=== PATIENT | male | born 1935 | race Caucasian/White ===

== ENCOUNTER → 2016-12-01 | Outpatient (CLI) | payer MEDICARE ==
[~2016-12-01] MED LIST: CATHETER FLUSH 10 ML SYR IV PRN; IOHEXOL 350 MG/ML 100 ML (OMNIPAQUE 350) VIAL IV ONE; NS 100 ML (IVPB) BAG IV ONE
--- NOTE | 2016-12-01 10:14 | Diagnostic Imaging Report ---
PROCEDURE: CT chest with contrast only. TECHNIQUE: Multiple contiguous axial images were obtained through the chest after administration of intravenous contrast. INDICATION: Pneumonia. COMPARISON: 05/09/2014. FINDINGS: There is no airspace disease or alveolar consolidation. There is some partial atelectasis in the dependent upper lobes chaitanya-fissural bilaterally as well as in the posterior sulci of both lower lobes. There are dense atherosclerotic vascular calcifications of the thoracic aorta. The ascending aorta is ectatic at 4 cm. The pulmonary arterial branches centrally are widely patent. There is no thoracic effusion or pneumothorax. No hilar or mediastinal lymphadenopathy. No chest wall abnormality. The visualized upper abdomen shows a fatty liver with no acute finding. IMPRESSION: Nonaneurysmal aortic atherosclerosis although mild ectasia is noted. Negative for central PE. Zones of dependent atelectasis without pneumonia, lung mass, or adenopathy. No chest effusion. Dictated by: Dictated on workstation # [id number]
== END ==
LOC: RAD 08:28
PROVIDERS: ATTEND Nurse Practitioner
DX: I70.0 Atherosclerosis of aorta (principal); J18.9 Pneumonia, unspecified organism
CPT/HCPCS: 71260

== ENCOUNTER → 2016-12-06 | Outpatient (CLI) | payer OTHER, MEDICARE ==
--- NOTE | 2016-12-06 11:44 | Diagnostic Imaging Report ---
EXAMINATION: Modified barium swallow. Indication: Pneumonia Different consistencies of fluid and food was given mixed with barium and swallowing was visualized under fluoroscopy. FLUOROSCOPY TIME: One minute and 2 seconds FINDINGS: No aspiration seen.. IMPRESSION: No aspiration seen. Please refer to speech therapist's report for additional details . Dictated by: Dictated on workstation # [id number]
== END ==
LOC: RAD 10:11
PROVIDERS: ATTEND Nurse Practitioner
DX: R13.12 Dysphagia, oropharyngeal phase (principal)
CPT/HCPCS: 74230

== ENCOUNTER 2017-02-23 16:37 | Inpatient (IN) | payer MEDICARE ==
[~2017-02-23] VITALS: Ht 175.3 cm; Wt 99.7 kg
[2017-02-23] MEDS ORDERED: NS IV 1000 ML 1,000 ML IV STA (16:44)
[2017-02-23] MEDS ORDERED: ACETAMINOPHEN 500 MG TAB (TYLENOL) PO PRN (16:45)
[2017-02-23 16:59] LABS: BASOPHILS % (AUTO) 0 % (0-10); EOSINOPHILS # (AUTO) 0.3 10^3/uL (0.0-0.3); EOSINOPHILS % (AUTO) 2 % (0-10); LYMPHOCYTES # (AUTO) 1.9 X 10^3 (1.0-4.0); LYMPHOCYTES % (AUTO) 15 % (12-44); MEAN CORPUSCULAR HEMOGLOBIN 34 PG (25-34); MEAN CORPUSCULAR HGB CONC 33 G/DL (32-36); MEAN CORPUSCULAR VOLUME 102 FL (80-99); MEAN PLATELET VOLUME 9.9 FL (7.4-10.4); MONOCYTES # (AUTO) 1.6 X 10^3 (0.0-1.0); MONOCYTES % (AUTO) 12 % (0-12); NEUTROPHILS # (AUTO) 8.9 X 10^3 (1.8-7.8); NEUTROPHILS % (AUTO) 70 % (42-75); PLATELET COUNT 213 10^3/uL (130-400); RED BLOOD COUNT 4.69 10^6/uL (4.35-5.85); RED CELL DISTRIBUTION WIDTH 12.8 % (10.0-14.5); WHITE BLOOD COUNT 12.6 10^3/uL (4.3-11.0)
[2017-02-23] MEDS ORDERED: RT-ALBUTEROL/IPRATROPIUM 3 ML (DUONEB) VIAL ONE (17:05)
[2017-02-23 17:10] LABS: INR 0.9 (0.8-1.4); PROTHROMBIN TIME PATIENT 12.7 SEC (12.2-14.7)
[2017-02-23 17:20] LABS: ALBUMIN 3.7 GM/DL (3.2-4.5); BILIRUBIN,TOTAL 0.3 MG/DL (0.1-1.0); CALCIUM 8.6 MG/DL (8.5-10.1); CREATININE SERUM 1.3 MG/DL (0.60-1.30); POTASSIUM 3.8 MMOL/L (3.6-5.0); TOTAL PROTEIN 6.6 GM/DL (6.4-8.2)
--- NOTE | 2017-02-23 17:22 | Diagnostic Imaging Report ---
INDICATION: Shortness of breath and weakness. EXAMINATION: Single view of the chest was obtained. FINDINGS: There is cardiomegaly. There is some mild venous congestion. There is no pleural effusion or pneumothorax. The mediastinum is unremarkable. There is some minimal left basilar atelectasis and/or pneumonitis. IMPRESSION: Cardiomegaly and mild venous congestion with some minimal left basilar atelectasis and/or pneumonitis. Dictated by: Dictated on workstation # [id number]
--- NOTE | 2017-02-23 17:27 | ED Respiratory ---
General Chief Complaint: Respiratory Problems Stated Complaint: SOA,WEAKNESS History of Present Illness Time seen by provider: 16:45 Initial Comments 82-year-old male presents via EMS from jail in [place], [place]. Staff reports increased weakness and shortness of air. He has history of COPD. he is in no distress at this time, afebrile at time of admission. Timing/Duration: just prior to arrival Prior Episodes/Possible Cause: frequent episodes Allergies and Home Medications Allergies Coded Allergies: Penicillins (Verified Allergy, Unknown, 02/23/17) Constitutional: no symptoms reported, see HPI Respiratory: see HPI, cough, phlegm All Other Systems Reviewed Negative Unless Noted: Yes Past Eiiwlyw-Lssbcg-Fqltgl Hx Reviewed Nursing Assessment Reviewed/Agree w Nursing PMH: Yes Physical Exam Vital Signs Vital Sign - Last 12Hours Capillary Refill : General Appearance: WD/WN, no apparent distress Eyes: Bilateral Eye PERRL, Bilateral Eye EOMI, Bilateral Eye Other (purulent matter about eyelashes in discharge from eyes, no periorbital edema noted) HEENT: TMs normal, pharynx normal Neck: non-tender, full range of motion, supple, normal inspection, No lymphadenopathy (R), No lymphadenopathy (L) Respiratory: chest non-tender, no respiratory distress, rhonchi, wheezing Cardiovascular: normal peripheral pulses, regular rate, rhythm, no murmur Gastrointestinal: normal bowel sounds, non tender, soft Neurologic/Psychiatric: no motor/sensory deficits, alert Skin: normal color, warm/dry Focused Exam Evaluation Lactate Level Laboratory Tests 02/23/17 16:45: Lactic Acid Level 2.56*H Lactic Acid Level Laboratory Tests Test 02/23/17 16:45 Lactic Acid Level 2.56 MMOL/L (0.50-2.00) *H Progress/Results/Core Measures Suspected Sepsis Recent Fever Within 48 Hours: Yes Infection Criteria Present: Suspected New Infection New/Unexplained Altered Menta: No Within 3hrs of presentation: Admin fluids, Blood cultures prior to ABX's, Lactate level Sepsis Diagnosis: SIRS Temperature: Pulse: Respiratory Rate: Laboratory Tests 02/23/17 16:45: White Blood Count 12.6H Blood Pressure / Mean: Laboratory Tests 02/23/17 16:45: Lactic Acid Level 2.56*H Laboratory Tests 02/23/17 16:45: Creatinine 1.30, INR Comment 0.9, Platelet Count 213, Total Bilirubin 0.3 Results/Orders Lab Results Laboratory Tests Test 02/23/17 16:45 02/23/17 18:25 Range/Units White Blood Count 12.6 H 4.3-11.0 10^3/uL Red Blood Count 4.69 4.35-5.85 10^6/uL Hemoglobin 15.7 13.3-17.7 G/DL Hematocrit 48 40-54 % Mean Corpuscular Volume 102 H 80-99 FL Mean Corpuscular Hemoglobin 34 25-34 PG Mean Corpuscular Hemoglobin Concent 33 32-36 G/DL Red Cell Distribution Width 12.8 10.0-14.5 % Platelet Count 213 130-400 10^3/uL Mean Platelet Volume 9.9 7.4-10.4 FL Neutrophils (%) (Auto) 70 42-75 % Lymphocytes (%) (Auto) 15 12-44 % Monocytes (%) (Auto) 12 0-12 % Eosinophils (%) (Auto) 2 0-10 % Basophils (%) (Auto) 0 0-10 % Neutrophils # (Auto) 8.9 H 1.8-7.8 X 10^3 Lymphocytes # (Auto) 1.9 1.0-4.0 X 10^3 Monocytes # (Auto) 1.6 H 0.0-1.0 X 10^3 Eosinophils # (Auto) 0.3 0.0-0.3 10^3/uL Basophils # (Auto) 0.0 0.0-0.1 10^3/uL Prothrombin Time 12.7 12.2-14.7 SEC INR Comment 0.9 0.8-1.4 Activated Partial Thromboplast Time 28 24-35 SEC Sodium Level 139 135-145 MMOL/L Potassium Level 3.8 3.6-5.0 MMOL/L Chloride Level 100 98-107 MMOL/L Carbon Dioxide Level 27 21-32 MMOL/L Anion Gap 12 5-14 MMOL/L Blood Urea Nitrogen 24 H 7-18 MG/DL Creatinine 1.30 0.60-1.30 MG/DL Estimat Glomerular Filtration Rate 53 BUN/Creatinine Ratio 18 Glucose Level 139 H 70-105 MG/DL Lactic Acid Level 2.56 *H 0.50-2.00 MMOL/L Calcium Level 8.6 8.5-10.1 MG/DL Total Bilirubin 0.3 0.1-1.0 MG/DL Aspartate Amino Transf (AST/SGOT) 89 H 5-34 U/L Alanine Aminotransferase (ALT/SGPT) 9 0-55 U/L Alkaline Phosphatase 58 40-136 U/L Total Protein 6.6 6.4-8.2 GM/DL Albumin 3.7 3.2-4.5 GM/DL Urine Color YELLOW Urine Clarity CLEAR Urine pH 6 5-9 Urine Specific [place] 1.020 1.016-1.022 Urine Protein NEGATIVE NEGATIVE Urine Glucose (UA) NEGATIVE NEGATIVE Urine Ketones NEGATIVE NEGATIVE Urine Nitrite NEGATIVE NEGATIVE Urine Bilirubin NEGATIVE NEGATIVE Urine Urobilinogen NORMAL NORMAL MG/DL Urine Leukocyte Esterase 1+ H NEGATIVE Urine RBC (Auto) NEGATIVE NEGATIVE Urine RBC NONE /HPF Urine WBC 0-2 /HPF Urine Squamous Epithelial Cells RARE /HPF Urine Crystals NONE /LPF Urine Bacteria NONE /HPF Urine Casts NONE /LPF Urine Mucus NEGATIVE /LPF Urine Culture Indicated NO My Orders Orders - NATALIYA BROWER Cbc With Automated Diff (02/23/17 16:44) Comprehensive Metabolic Panel (02/23/17 16:44) Lactic Acid Analyzer (02/23/17 16:44) Blood Culture (02/23/17 16:44) Sputum Culture (02/23/17 16:44) Ua Culture If Indicated (02/23/17 16:44) Protime With Inr (02/23/17 16:44) Partial Thromboplastin Time (02/23/17 16:44) Chest 1 View, Ap/Pa Only (02/23/17 16:44) O2 (02/23/17 16:44) Acetaminophen Tablet (Tylenol Tablet) (02/23/17 16:45) Saline Lock/Iv-Start (02/23/17 16:44) Vital Signs Adult Sepsis Patie Q1H (02/23/17 16:44) Ns Iv 1000 Ml (Sodium Chloride 0.9%) (02/23/17 16:44) Albuterol/Ipra Inhalation Soln (Duoneb I (02/23/17 17:05) Medications Given in ED Current Medications Medications Dose Ordered Sig/George Route Start Time Stop Time Status Last Admin Dose Admin Albuterol/ Ipratropium 3 ml STK-MED ONCE .ROUTE 02/23/17 17:05 02/23/17 17:07 DC 02/23/17 17:11 3 ML Vital Signs/I&O Vital Sign - Last 12Hours 02/23/17 02/23/17 02/23/17 02/23/17 16:40 16:40 17:11 17:20 Temp 98.5 98.5 Pulse 92 93 Resp 18 18 B/P (MAP) 141/126 (131) 143/100 Pulse Ox 92 94 93 O2 Delivery Nasal Cannula Nasal Cannula Nasal Cannula Nasal Cannula O2 Flow Rate 2.00 3.00 3.00 Capillary Refill : Progress Note : Time: 16:45 Progress Note Initial evaluation completed, recommended lab workup for sepsis. Chest x-ray and DuoNeb treatment. SaO2 greater than 92% on 2 L per nasal cannula 171 labs and chest x-ray reviewed. Trace improvement in air movement and less rhonchi after DuoNeb treatment. 0 discussed patient by phone with Dr. Groves, recommended admission to ICU, antibiotic coverage for HCAP. Bridge orders completed. SaO2 remained greater than 92% on 2 L per nasal cannula oxygen. No respiratory distress noted Diagnostic Imaging Diagonstic Imaging: Xray Plain Films/CT/US/NM/MRI: chest Comments NAME: LUISITO SERNA MED REC#: [id number] PT STATUS: REG ER : 1935 PHYSICIAN: NATALIYA BROWER ADMIT DATE: 02/23/17/ER Draft Date of Exam:02/23/17 CHEST 1 VIEW, AP/PA ONLY INDICATION: Shortness of breath and weakness. EXAMINATION: Single view of the chest was obtained. FINDINGS: There is cardiomegaly. There is some mild venous congestion. There is no pleural effusion or pneumothorax. The mediastinum is unremarkable. There is some minimal left basilar atelectasis and/or pneumonitis. IMPRESSION: Cardiomegaly and mild venous congestion with some minimal left basilar atelectasis and/or pneumonitis. Dictated on workstation # [id number] Dict: 02/23/174 Trans: 02/23/17 172 [facility] [phone] Interpreted by: DANA WHITE MD Electronically signed by: Reviewed: Reviewed by Me Departure Impression Impression: Primary Impression: HCAP (healthcare-associated pneumonia) Additional Impressions: COPD (chronic obstructive pulmonary disease) Qualified Codes: J41.0 - Simple chronic bronchitis Conjunctivitis Qualified Codes: H10.33 - Unspecified acute conjunctivitis, bilateral Disposition: 09 ADMITTED INPATIENT Condition: Stable Admissions Decision to Admit Reason: Admit from ER (General) Decision to Admit/Date: Feb 23, 2017 Time/Decision to Admit Time: 18:20 Departure-Patient Inst. Referrals: SARAH PAEZ MD (PCP/Family) Primary Care Physician Copy Copies To 1: SARAH PAEZ MD, AMY ARNP Feb 23, 2017 17:27
[2017-02-23 18:36] LABS: BILIRUBIN,URINE NEGATIVE (NEGATIVE); KETONES,URINE NEGATIVE (NEGATIVE); LEUKOCYTE ESTERASE ,URINE 1+ (NEGATIVE); NITRITE,URINE NEGATIVE (NEGATIVE); PH,URINE 6 (5-9); PROTEIN,URINE NEGATIVE (NEGATIVE); UROBILINOGEN,URINE NORMAL (NORMAL)
[2017-02-23 18:43] LABS: SQUAMOUS EPITHELIAL CELL,UR RARE /HPF; WBC,URINE 0-2 /HPF
[2017-02-23] MEDS ORDERED: LEVOFLOXACIN 750 MG/150 ML IV 150 ML IV ONE (19:50)
[2017-02-23 20:15] VITALS: BP 139/72
[2017-02-23 21:00] VITALS: BP 127/74
[2017-02-23] MEDS ORDERED: ACETAMINOPHEN 325 MG TABLET/CAPLET (TYLENOL) PO PRN (21:30)
[2017-02-23] MEDS ORDERED: ONDANSETRON 4 MG/2 ML (SDV) Z0FRAN IV PRN (21:30)
[2017-02-23 21:40] VITALS: BP 139/72
[2017-02-23] MEDS: RT-ALBUTEROL/IPRATROPIUM 3 ML (DUONEB) VIAL IH SCH (21:53)
[2017-02-23] MEDS: NS IV 1000 ML 1,000 ML IV SCH (21:58)
[2017-02-23 22:00] VITALS: BP 114/66
[2017-02-23] MEDS ORDERED: RT-ALBUTEROL/IPRATROPIUM 3 ML (DUONEB) VIAL INH SCH (22:00)
[2017-02-23] MEDS ORDERED: RT-ALBUTEROL/IPRATROPIUM 3 ML (DUONEB) VIAL INH PRN (22:00)
[2017-02-23 23:00] VITALS: BP 136/68
[2017-02-24] VITALS (17 sets, daily range): BP systolic 104–151; BP diastolic 59–99
[2017-02-24] MEDS: TOBRA/DEXAMETH (TOBRADEX) OPHTH SUSP 2.5 ML BTL OU SCH ×5 (01:19→23:24)
[2017-02-24] MEDS: RT-ALBUTEROL/IPRATROPIUM 3 ML (DUONEB) VIAL IH SCH ×6 (02:19→22:15)
[2017-02-24 05:21] LABS: BASOPHILS % (AUTO) 0 % (0-10); EOSINOPHILS # (AUTO) 0.6 10^3/uL (0.0-0.3); EOSINOPHILS % (AUTO) 7 % (0-10); LYMPHOCYTES # (AUTO) 1.6 X 10^3 (1.0-4.0); LYMPHOCYTES % (AUTO) 17 % (12-44); MEAN CORPUSCULAR HEMOGLOBIN 34 PG (25-34); MEAN CORPUSCULAR HGB CONC 33 G/DL (32-36); MEAN CORPUSCULAR VOLUME 103 FL (80-99); MEAN PLATELET VOLUME 10.4 FL (7.4-10.4); MONOCYTES # (AUTO) 1.2 X 10^3 (0.0-1.0); MONOCYTES % (AUTO) 12 % (0-12); NEUTROPHILS # (AUTO) 6.1 X 10^3 (1.8-7.8); NEUTROPHILS % (AUTO) 64 % (42-75); PLATELET COUNT 171 10^3/uL (130-400); RED CELL DISTRIBUTION WIDTH 12.7 % (10.0-14.5); WHITE BLOOD COUNT 9.5 10^3/uL (4.3-11.0)
[2017-02-24 05:46] LABS: ALANINE AMINOTRANSFERASE 34 U/L (0-55); ALBUMIN 3.3 GM/DL (3.2-4.5); ANION GAP 10 MMOL/L (5-14); ASPARTATE AMINO TRANSFERASE 85 U/L (5-34); BILIRUBIN,TOTAL 0.5 MG/DL (0.1-1.0); BLOOD UREA NITROGEN 21 MG/DL (7-18); BUN/CREATININE RATIO 23; CALCIUM 8.3 MG/DL (8.5-10.1); CARBON DIOXIDE 27 MMOL/L (21-32); CHLORIDE 104 MMOL/L (98-107); CREATININE SERUM 0.93 MG/DL (0.60-1.30); GFR ESTIMATED > 60; GLUCOSE 84 MG/DL (70-105); PHOSPHORUS 3.1 MG/DL (2.3-4.7); POTASSIUM 3.9 MMOL/L (3.6-5.0); SODIUM 141 MMOL/L (135-145); TOTAL PROTEIN 5.5 GM/DL (6.4-8.2)
--- NOTE | 2017-02-24 06:55 | Pulmonary Consultation ---
History of Present Illness History of Present Illness Date of Consultation 02/24/17 06:50 Time Seen by Provider: 06:50 Date of Admission History of Present Illness 82yo oxygen dependent COPD presented to ED via EMS secondary to respiratory distress. ECF reported pt was having fevers. NO fever since admission. He is currently requiring 3 liters of oxygen. PT has also had increased weakness and productive cough. Pt was admitted secondary to pneumonia to the ICU with Abx. I am consulted for pulmonary management. Allergies and Home Medications Allergies Coded Allergies: Penicillins (Verified Allergy, Unknown, 02/23/17) Home Medications Acetaminophen 325 Mg Tablet, 650 MG PO Q4H PRN for PAIN-MILD, (Reported) TAKES 2 (325MG) TABLETS Albuterol Sulfate 2.5 Mg/3 Ml Vial.neb, 2.5 MG NEB 0900,1400,2100, (Reported) Albuterol Sulfate 2.5 Mg/3 Ml Vial.neb, 2.5 MG NEB Q6H PRN for SHORTNESS OF BREATH, (Reported) Amlodipine Besylate 5 Mg Tablet, 5 MG PO DAILY, (Reported) Aspirin 81 Mg Tablet.dr, 81 MG PO DAILY, (Reported) Atorvastatin Calcium 10 Mg Tablet, 10 MG PO HS, (Reported) Bisacodyl 10 Mg Supp.rect, 10 MG RC DAILY PRN for CONSTIPATION-4TH LINE, ( Reported) Buspirone HCl 10 Mg Tablet, 10 MG PO TID, (Reported) Carbidopa/Levodopa 1 Each Tablet, 2 TAB PO TIDWM, (Reported) Clonazepam 0.25 Mg Tab.rapdis, 0.25 MG PO HS, (Reported) Divalproex Sodium 250 Mg Tablet.dr, 250 MG PO BID, (Reported) TO BE GIVEN WITH 500MG TO EQUAL 750MG Divalproex Sodium 500 Mg Tablet.dr, 500 MG PO BID, (Reported) TO BE GIVEN WTIH 250MG TO EQUAL 750MG Donepezil HCl 10 Mg Tablet, 10 MG PO HS, (Reported) Furosemide 40 Mg Tablet, 40 MG PO DAILY, (Reported) Guaifenesin/Dextromethorphan 5 Ml Syrup, 10 ML PO Q4H PRN for COUGH, (Reported) Ipratropium/Albuterol Sulfate 3 Ml Ampul.neb, 3 ML NEB Q4H PRN for SHORTNESS OF BREATH, (Reported) Levofloxacin 750 Mg Tablet, 750 MG PO DAILY, #5 start tonight at 1999 Prescribed by: SARAH JUÁREZ on 02/25/1732 Loratadine 10 Mg Tablet, 10 MG PO DAILY, (Reported) Melatonin 3 Mg Tablet, 3 MG PO HS PRN for SLEEP, (Reported) Montelukast Sodium 10 Mg Tablet, 10 MG PO HS, (Reported) Na Phos,M-B/Na Phos,Di-Ba 133 Ml Enema, 133 ML RC DAILY PRN for CONSTIPATION- 8TH LINE, (Reported) Naproxen 250 Mg Tablet, 250 MG PO HS, (Reported) Oxymetazoline HCl 30 Ml [place], 1 SPRAY NS BID, (Reported) Pnv with Ca,No.72/Iron/FA 1 Each Tablet, 1 TAB PO DAILY, (Reported) Polyvinyl Alcohol/Povidone 15 Ml Drops, 2 DROPS OU PRN PRN for DRY EYES, ( Reported) Rivastigmine 1 Each Patch.td24, 4.6 MG TD DAILY, (Reported) Ropinirole HCl 4 Mg Tablet, 4 MG PO HS, (Reported) Sennosides/Docusate Sodium 1 Each Tablet, 1 TAB PO BID, (Reported) Tamsulosin HCl 0.4 Mg Cap.er.24h, 0.4 MG PO HS, (Reported) Tiotropium [place] 1 Inh Aerp, 1 CAP INH DAILY, (Reported) Tobramycin/Dexamethasone 5 Ml Drops.susp, 2 DROPS OU Q6HR for 7 Days, #1 Prescribed by: SARAH JUÁREZ on 02/25/1732 Venlafaxine HCl 37.5 Mg Cap.er.24h, 37.5 MG PO DAILY, (Reported) TO BE GIVEN WITH THE 75MG CAPSULE TO EQUAL 112.5MG Venlafaxine HCl 75 Mg Cap.er.24h, 75 MG PO DAILY, (Reported) TO BE GIVEN WITH THE 37.5MG CAPSULE TO EQUAL 112.5MG Past Pboutep-Jhatzj-Neihgs Hx Patient Social History Alcohol Use: Denies Use Recreational Drug Use: No Smoking Status: Former Smoker Type Used: Cigarettes Former Smoker, Quit: Feb 28, 2014 Recent Foreign Travel: No Contact w/Someone Who Travel: No Recent Infectious Disease Expo: No Recent Hopitalizations: No Physical Abuse: No Sexual Abuse: No Mistreated: No Seasonal Allergies Seasonal Allergies: No Surgeries History of Surgeries: Yes (CAROTID) Respiratory History of Respiratory Disorde: Yes Respiratory Disorders: Chronic Bronchitis, COPD Cardiovascular History of Cardiac Disorders: Yes Cardiac Disorders: High Cholesterol, Hypertension Neurological History of Neurological Disord: Yes Neurological Disorders: Dementia, Parkinson's Disease Genitourinary Genitourinary Disorders: Prostate Problems Gastrointestinal History of Gastrointestinal Di: Yes Gastrointestinal Disorders: Chronic Constipation Musculoskeletal History of Musculoskeletal Dis: No HEENT History of HEENT Disorders: No Psychosocial History of Psychiatric Problem: Yes Behavioral Health Disorders: Sleep Difficulties, Anxiety, Depression Suicide Risk Score: 0 Reviewed Nursing Assessment Reviewed/Agree w Nursing PMH: Yes Review of Systems Time Seen by Provider: 08:46 Constitutional: Fever, Sweats, Weakness, Malaise, No: Chills Eyes: No: Pain, Vision change, Conjunctivae inflammation, Eyelid inflammation, Other, Redness ENT: No: Ear pain, Ear discharge, Nose pain, Nose discharge, Nose congestion, Mouth pain, Mouth swelling, Throat pain, Throat swelling, Other Respiratory: Cough, Shortness of breath, SOB with excertion, Wheezing, Sputum, No: Hemoptysis Cardiovascular: Orthopnea, Paroxysmal Noc. Dyspnea, Lt Headedness Gastrointestinal: No: Nausea, Vomiting, Abdominal Pain, Diarrhea, Constipation , Melena, Hematochezia, Other Genitourinary: No Dysuria, No Frequency, No Incontinence, No Hematuria, No Retention, No Other Neurological: Weakness Exam Exam Vital Signs Date Time Temp Pulse Resp B/P (MAP) Pulse Ox O2 Delivery O2 Flow Rate FiO2 02/24/17 06:38 Nasal Cannula 3.00 02/24/17 06:00 63 15 151/66 (94) 96 Nasal Cannula 3.00 02/24/17 05:00 64 17 142/72 (95) 94 Nasal Cannula 3.00 02/24/17 04:00 96 Nasal Cannula 3.00 02/24/17 04:00 70 15 139/74 (95) 96 Nasal Cannula 3.00 02/24/17 03:23 98.2 02/24/17 03:00 74 8 117/84 (95) 96 Nasal Cannula 3.00 02/24/17 02:19 95 Nasal Cannula 3.00 02/24/17 02:00 87 13 143/99 (114) 96 Nasal Cannula 3.00 02/24/17 01:00 81 17 148/75 (99) 94 Nasal Cannula 3.00 02/24/17 01:00 80 02/24/17 00:00 84 11 147/76 (99) 95 Nasal Cannula 3.00 02/24/17 00:00 95 Nasal Cannula 3.00 02/23/17 23:00 89 19 136/68 (90) 94 Nasal Cannula 3.00 02/23/17 22:00 83 7 114/66 (82) 96 Nasal Cannula 3.00 02/23/17 21:53 95 Nasal Cannula 3.00 02/23/17 21:40 86 95 32 02/23/17 21:00 80 21 127/74 (91) 96 Nasal Cannula 3.00 02/23/17 20:17 69 02/23/17 20:15 98.4 70 20 139/72 (94) 96 Nasal Cannula 02/23/17 20:10 Nasal Cannula 3.00 02/23/17 20:10 98.2 92 18 95 02/23/17 17:20 98.5 93 18 143/100 93 Nasal Cannula 3.00 02/23/17 17:11 Nasal Cannula 02/23/17 16:40 94 Nasal Cannula 3.00 02/23/17 16:40 98.5 92 18 141/126 (131) 92 Nasal Cannula 2.00 I & O 02/24/17 07:00 Intake Total 1400 ml Output Total 3 ml Balance 1397 ml General Appearance: No Apparent Distress, WD/WN HEENT: PERRL/EOMI Neck: Full Range of Motion, Normal Inspection, Non Tender, Supple Respiratory: No Accessory Muscle Use, No Respiratory Distress, Decreased Breath Sounds, Rhonci Cardiovascular: Regular Rate, Rhythm, No Edema, No Gallop, No JVD Capillary Refill: Less Than 3 Seconds Gastrointestinal: normal bowel sounds, non tender, soft Extremity: Normal Capillary Refill, Normal Inspection Neurologic/Psychiatric: Alert Skin: Normal Color, Warm/Dry Lymphatic: No Adenopathy Results Lab Laboratory Tests 02/23/17 16:45 02/24/17 04:50 Assessment/Plan Assessment/Plan PNeumonia with dyspnea/hypoxia -Pt is rapidly improving - continue Levaquin -IVF currently NS 75cc/hr -[place] cultures pending -Pt is a DNR Hx of CHF -Check BNP Metabolic lactic acidosis -rapidly improved hx of COPD -SVNS Atelectasis -IS, SVNs hx of dementia 255 Clinical Quality Measures DVT/VTE Risk/Contraindication: Risk Factor Score Per Nursin RFS Level Per Nursing on Admit: 4+=Very High BLAYNE PETERSON DO Feb 24, 2017 06:55
[2017-02-24] MEDS ORDERED: FAMOTIDINE 20 MG (PEPCID) TABLET PO PRN (07:00)
--- NOTE | 2017-02-24 08:18 | History & Physical-Hospitalist ---
HPI History of Present Illness: HPI/Chief Complaint Pt is an 82yoCM with a PMH of parksinons, dementia, HTn, COPD who presented to the ER for fever and hypoxia noted on vital check. Due to his dementia ( baseline alert to person only) he is unable to provide me any history and history is obtained through the records sent from his facility and the ER documentation. He was given Tylenol and temperature continued to rise prompting them to send him for evaluation in the ER. Here he was not febrile but was found to have a leukocytosis and and PNA on CXR and admitted for treatment of HCAP. I did call and discuss the events leading up to his presentation here with his RN [facility] at [facility]. She denies any increasing cough or sputum. She did notice he was somewhat weaker yesterday necessitating a elena lift when he is normally a 2 person assist to stand. Otherwise she noticed no changes. Source: patient Exam Limitations: clinical condition Date Seen 02/24/17 Time Seen by Provider: 07:30 Attending Physician Philip Denson MD PCP Philip Denson MD Referring Physician Date of Admission Feb 23, 2017 at 6:34 pm Home Medications & Allergies Home Medications Reviewed patient Home Medication Reconciliation Form Allergies Allergies Coded Allergies Penicillins (Verified Allergy, Unknown, 02/23/17) Past Lyfmfkh-Enndgq-Ilowye Hx Patient Social History Employed/Student: retired Alcohol Use: Denies Use Recreational Drug Use: No Smoking Status: Former Smoker Former Smoker, Quit: Feb 28, 2014 Type Used: Cigarettes Recent Foreign Travel: No Contact w/other who traveled: No Recent Hopitalizations: No Recent Infectious Disease Expo: No Seasonal Allergies Seasonal Allergies: No Surgeries Yes (CAROTID) Respiratory Yes COPD Cardiovascular Yes High Cholesterol, Hypertension Neurological Yes Dementia, Parkinson's Disease Genitourinary Prostate Problems Gastrointestinal Yes Chronic Constipation Musculoskeletal No HEENT History of HEENT Disorders: No Psychosocial History of Psychiatric Problem: Yes Behavioral Health Disorders: Sleep Difficulties, Anxiety, Depression Reviewed Nursing Assessment Reviewed/Agree w Nursing PMH: Yes Family Medical History Significant Family History: No Pertinent Family Hx Other Significan Family Hx: Unable to obtain due to dementia Review of Systems ROS-Unable to Obtain: Due to dementia Constitutional: no symptoms reported Physical Exam Physical Exam Vital Signs Vital Sign - Last 12Hours 02/23/17 21:40 FiO2 32 Capillary Refill : Less Than 3 Seconds General Appearance: No Apparent Distress, WD/WN Respiratory: No Accessory Muscle Use, No Respiratory Distress, Decreased Breath Sounds (bilaterally), No Rales, No Wheezing Cardiovascular: Regular Rate, Rhythm, No Murmur Gastrointestinal: Normal Bowel Sounds, Non Tender, Soft Neurologic/Psychiatric: Alert, Other (oriented to self only- baseline per [facility], [place]) Results Results/Procedures Lab Laboratory Tests 02/23/17 16:45 02/24/17 04:50 02/25/17 05:59 Assessment/Plan Admission Diagnosis HCAP Diagnosis/Problems Diagnosis/Problems (1) HCAP (healthcare-associated pneumonia) Assessment & Plan: WBC resolved Lactic acid resolved Afebrile here If has sepsis, now resolved Continue on Levaquin Blood cultures pending Sputum culture pending Received Prevnar on September 17 per RN at [facility] (2) Dementia Status: Chronic Assessment & Plan: Per records Baseline alert and oriented to person Currently at baseline On Aricept, Sinemet Qualifiers: (3) COPD (chronic obstructive pulmonary disease) Assessment & Plan: MAT protocol Wears 2-3lpm at baseline Pulm consulted, appreciate recs Spiriva Qualifiers: Qualified Codes: J44.9 - Chronic obstructive pulmonary disease, unspecified (4) CAD (coronary artery disease) Assessment & Plan: Continue ASA, Lipitor Qualifiers: Qualified Codes: I25.10 - Atherosclerotic heart disease of three affiliated coronary artery without angina pectoris (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 Assessment & Plan: Has known lacrimal duct disease Continue artificial tears Some purulence noted Will cont abx gtt Qualifiers: Qualified Codes: H04.121 - Dry eye syndrome of right lacrimal gland (6) Essential (primary) hypertension Assessment & Plan: BP well controlled currently Will resume amlodipine if needed (7) Generalized anxiety disorder Assessment & Plan: On multiple medications (Klonopin, Buspar, Effexor, and Depakote) Will resume home meds (8) Prophylactic measure Assessment & Plan: Lovenox NS at 75ml/hr Reg Diet Clinical Quality Measures DVT/VTE Risk/Contraindication: Risk Factor Score Per Nursin RFS Level Per Nursing on Admit: 4+=Very High SARAH JUÁREZ MD Feb 24, 2017 8:17 am
--- NOTE | 2017-02-24 08:31 | Diagnostic Imaging Report ---
EXAMINATION: Portable erect AP chest of 0516 AM INDICATION: Pneumonia The cardiomegaly and the left lower lobe pneumonia/atelectasis and left pleural effusion seen on the prior exam of 02/23/2017 are again evident and not significantly changed. There is also a small amount of atelectasis/infiltrate in the right infrahilar region. This finding is similar to the prior exam as well. The lungs are otherwise clear. The central pulmonary vascularity remains slightly prominent and there may be an element of mild pulmonary congestion present as well. The mediastinum is not widened. The osseous structures are intact. IMPRESSION: When compared to the previous study, there does not appear to have been any significant change. A followup study would be recommended for continued evaluation. Dictated by: Dictated on workstation # [id number]
[2017-02-24] MEDS ORDERED: DONE10TA41 PO (08:56)
[2017-02-24] MEDS ORDERED: ASPI-983 PO (08:56)
[2017-02-24] MEDS ORDERED: VENL-48 PO (08:56)
[2017-02-24] MEDS ORDERED: VENL75CA93 PO (08:56)
[2017-02-24] MEDS ORDERED: AMLO5TAB2 PO (08:56)
[2017-02-24] MEDS ORDERED: ATOR10TA66 PO (08:56)
[2017-02-24] MEDS ORDERED: MONT10TA24 PO (09:09)
[2017-02-24] MEDS ORDERED: BUSP10TA95 PO (09:09)
[2017-02-24] MEDS ORDERED: CLON0.252 PO (09:09)
[2017-02-24] MEDS ORDERED: ROPI4TAB3 PO (09:09)
[2017-02-24] MEDS ORDERED: NAPR250T6 PO (09:09)
[2017-02-24] MEDS ORDERED: BISA10SU6 RC (09:09)
[2017-02-24] MEDS ORDERED: ACET325T38 PO (09:09)
[2017-02-24] MEDS ORDERED: MELA3TAB PO (09:09)
[2017-02-24] MEDS ORDERED: IPRA3AMP NEB (09:09)
[2017-02-24] MEDS ORDERED: SENN-40 PO (09:09)
[2017-02-24] MEDS ORDERED: OXYM30SP NS (09:09)
[2017-02-24] MEDS ORDERED: TAMS0.4C2 PO (09:09)
[2017-02-24] MEDS ORDERED: GUAI5SYR PO (09:09)
[2017-02-24] MEDS ORDERED: TIOT18CA2 INH (09:09)
[2017-02-24] MEDS ORDERED: DIVA500T7 PO (09:09)
[2017-02-24] MEDS ORDERED: ALBU2.5V4 NEB ×2 (09:09)
[2017-02-24] MEDS ORDERED: RIVA1PAT11 TD (09:09)
[2017-02-24] MEDS ORDERED: POLY15DR14 OU (09:09)
[2017-02-24] MEDS ORDERED: CARB1TAB19 PO (09:09)
[2017-02-24] MEDS ORDERED: NA P133E22 RC (09:09)
[2017-02-24] MEDS ORDERED: LORA10TA7 PO (09:09)
[2017-02-24] MEDS ORDERED: DIVA250T4 PO (09:09)
[2017-02-24] MEDS ORDERED: FURO40TA4 PO (09:09)
[2017-02-24] MEDS ORDERED: PNV1TABL65 PO (09:09)
[2017-02-24] MEDS: ENOXAPARIN 40 MG/0.4 ML (LOVENOX) SYR SC SCH (10:00)
[2017-02-24] MEDS ORDERED: POLYVINYL ALCOHOL OU PRN (12:45)
[2017-02-24] MEDS ORDERED: guaiFENesin/DM (ROBITUSSIN DM) 10 ML UDC PO PRN (12:45)
[2017-02-24] MEDS ORDERED: ACETAMINOPHEN 325 MG TABLET/CAPLET (TYLENOL) PO PRN (12:45)
[2017-02-24] MEDS ORDERED: BISACODYL 10 MG SUPP (DULCOLAX) RC PRN (12:45)
[2017-02-24] MEDS ORDERED: [UNRECOGNIZED DRUG - OTHER] OU PRN (12:45)
[2017-02-24] MEDS ORDERED: MELATONIN 3 MG TABLET PO PRN (12:45)
[2017-02-24] MEDS ORDERED: POVIDONE OU PRN (12:45)
[2017-02-24] MEDS: NS IV 1000 ML 1,000 ML IV SCH (12:52)
[2017-02-24] MEDS ORDERED: ARTIFICAL TEARS 0.4 ML UNIT DOSE (REFRESH PLUS) OU PRN (13:00)
[2017-02-24] MEDS: busPIRone 10 MG (BUSPAR) TAB PO SCH ×2 (13:45→20:29)
[2017-02-24] MEDS: SINEMET 25/100 (CARBIDOPA/LEVODOPA) TAB PO SCH (17:10)
[2017-02-24] MEDS ORDERED: ALFUZOSIN HCL 10 MG TAB (UROXATRAL) PO SCH (18:00)
[2017-02-24] MEDS ORDERED: LEVOFLOXACIN 750 MG/D5W 150 ML PRE-MIX IV SCH (20:00)
[2017-02-24] MEDS: SENNA W/DOCUSATE (SENOKOT S) TABLET PO SCH (20:29)
[2017-02-24] MEDS: DIVALPROEX 250 MG DELAYED RELEASE (DEPAKOTE) TAB PO SCH (20:53)
[2017-02-24] MEDS: DIVALPROEX 500 MG DELAYED RELEASE (DEPAKOTE) TAB PO SCH (20:53)
[2017-02-24] MEDS ORDERED: RX-NAPROXEN (NAPROSYN) 250 MG TAB PPK#4 PO SCH (21:00)
[2017-02-24] MEDS ORDERED: DONEPEZIL 10 MG (ARICEPT) TAB PO SCH (21:00)
[2017-02-24] MEDS ORDERED: MONTELUKAST 10 MG (SINGULAIR) TAB PO SCH (21:00)
[2017-02-24] MEDS ORDERED: ATORVASTATIN 10 MG (LIPITOR) TABLET PO SCH (21:00)
[2017-02-24] MEDS ORDERED: NON-FORMULARY MEDICATION 1 EA EA (Clonazepam 0.25 MG) PO SCH (21:00)
[2017-02-24] MEDS ORDERED: NAPROXEN 250 MG (NAPROSYN) TABLET PO SCH (21:00)
[2017-02-24] MEDS ORDERED: NON-FORMULARY MEDICATION 1 EA EA (Tamsulosin HCl 0.4 MG) PO SCH (21:00)
[2017-02-24] MEDS ORDERED: clonazePAM 0.5 MG (KlonoPIN) TAB PO SCH (21:00)
[2017-02-24] MEDS ORDERED: NON-FORMULARY MEDICATION 1 EA EA (Ropinirole HCl 4 MG) PO SCH (21:00)
[2017-02-24] MEDS ORDERED: rOPINIRole 1 MG (REQUIP) TABLET PO SCH (21:00)
[2017-02-25] VITALS: BP 105/57
[2017-02-25] MEDS: NS IV 1000 ML 1,000 ML IV SCH (00:22)
[2017-02-25] MEDS: RT-ALBUTEROL/IPRATROPIUM 3 ML (DUONEB) VIAL IH SCH ×3 (02:01→10:35)
[2017-02-25 04:00] VITALS: BP 125/55
[2017-02-25 06:10] LABS: BASOPHILS % (AUTO) 0 % (0-10); EOSINOPHILS # (AUTO) 0.7 10^3/uL (0.0-0.3); EOSINOPHILS % (AUTO) 9 % (0-10); LYMPHOCYTES # (AUTO) 1.4 X 10^3 (1.0-4.0); LYMPHOCYTES % (AUTO) 17 % (12-44); MEAN CORPUSCULAR HEMOGLOBIN 34 PG (25-34); MEAN CORPUSCULAR HGB CONC 33 G/DL (32-36); MEAN CORPUSCULAR VOLUME 103 FL (80-99); MEAN PLATELET VOLUME 10.1 FL (7.4-10.4); MONOCYTES % (AUTO) 12 % (0-12); NEUTROPHILS % (AUTO) 61 % (42-75); PLATELET COUNT 169 10^3/uL (130-400); RED BLOOD COUNT 3.94 10^6/uL (4.35-5.85); RED CELL DISTRIBUTION WIDTH 12.5 % (10.0-14.5); WHITE BLOOD COUNT 8.1 10^3/uL (4.3-11.0)
[2017-02-25] MEDS: ENOXAPARIN 40 MG/0.4 ML (LOVENOX) SYR SC SCH (06:27)
[2017-02-25] MEDS: TOBRA/DEXAMETH (TOBRADEX) OPHTH SUSP 2.5 ML BTL OU SCH ×2 (06:27→11:45)
[2017-02-25] MEDS: SINEMET 25/100 (CARBIDOPA/LEVODOPA) TAB PO SCH ×2 (06:27→11:46)
[2017-02-25 06:29] LABS: ANION GAP 10 MMOL/L (5-14); BLOOD UREA NITROGEN 20 MG/DL (7-18); BUN/CREATININE RATIO 22; CALCIUM 7.9 MG/DL (8.5-10.1); CARBON DIOXIDE 23 MMOL/L (21-32); CHLORIDE 106 MMOL/L (98-107); CREATININE SERUM 0.91 MG/DL (0.60-1.30); GFR ESTIMATED > 60; GLUCOSE 106 MG/DL (70-105); PHOSPHORUS 3.3 MG/DL (2.3-4.7); POTASSIUM 3.8 MMOL/L (3.6-5.0); SODIUM 139 MMOL/L (135-145)
[2017-02-25 07:26] VITALS: BP 127/59
--- NOTE | 2017-02-25 07:42 | Pulmonary Progress Note ---
Subjective Time Seen by Provider: 07:42 Subjective/Events-last exam No complications noted. Exam Exam Vital Signs Date Time Temp Pulse Resp B/P (MAP) Pulse Ox O2 Delivery O2 Flow Rate FiO2 02/25/17 07:26 98.4 84 22 127/59 (81) 93 Nasal Cannula 3.00 02/25/17 07:11 92 Nasal Cannula 3.00 02/25/17 04:00 98.6 90 18 125/55 (78) 93 Nasal Cannula 2.00 02/25/17 02:01 94 Nasal Cannula 3.00 02/25/17 00:00 98.1 100 18 105/57 (73) 95 Nasal Cannula 3.00 02/24/17 22:15 95 Nasal Cannula 3.00 02/24/17 19:43 Nasal Cannula 3.00 02/24/17 19:12 97.1 102 20 104/59 (74) 94 Nasal Cannula 3.00 02/24/17 18:46 96 Nasal Cannula 3.00 02/24/17 15:20 97.9 77 16 117/75 (89) 94 Nasal Cannula 3.00 02/24/17 14:01 96 Nasal Cannula 3.00 02/24/17 12:32 97.8 76 18 138/64 (88) 98 Nasal Cannula 3.00 02/24/17 12:00 81 19 126/65 (85) 92 Nasal Cannula 3.00 02/24/17 12:00 97.4 Nasal Cannula 3.00 02/24/17 12:00 Nasal Cannula 3.00 02/24/17 11:00 84 20 132/89 (103) 93 Nasal Cannula 3.00 02/24/17 10:19 98 Nasal Cannula 3.00 02/24/17 10:00 80 14 135/66 (89) 92 Nasal Cannula 3.00 02/24/17 09:00 87 12 128/81 (97) 92 Nasal Cannula 3.00 02/24/17 08:00 Nasal Cannula 3.00 02/24/17 08:00 80 12 124/63 (83) 94 Nasal Cannula 3.00 02/24/17 08:00 98.7 Nasal Cannula 3.00 I & O 02/25/17 07:00 Intake Total 1864 ml Balance 1864 ml General Appearance: No Apparent Distress, WD/WN HEENT: PERRL/EOMI Neck: Full Range of Motion, Normal Inspection, Non Tender, Supple Respiratory: No Accessory Muscle Use, No Respiratory Distress, Decreased Breath Sounds (bilaterally), No Rales, No Wheezing Cardiovascular: Regular Rate, Rhythm, No Murmur Capillary Refill: Less Than 3 Seconds Gastrointestinal: normal bowel sounds, non tender, soft Extremity: Normal Capillary Refill, Normal Inspection Neurologic/Psychiatric: Alert, Other (oriented to self only- baseline per NH, [place]) Skin: Normal Color, Warm/Dry Lymphatic: No Adenopathy Results Lab Laboratory Tests 02/23/17 16:45 02/24/17 04:50 02/25/17 05:59 Assessment/Plan Assessment/Plan PNeumonia with dyspnea/hypoxia -Levaquin -[place] cultures pending -Pt is a DNR Hx of CHF -Check BNP Metabolic lactic acidosis -rapidly improved hx of COPD -SVNS Atelectasis -IS, SVNs hx of dementia 232 Clinical Quality Measures DVT/VTE Risk/Contraindication: Risk Factor Score Per Nursin RFS Level Per Nursing on Admit: 4+=Very High BLAYNE PETERSON DO Feb 25, 2017 07:42
[2017-02-25] MEDS: DIVALPROEX 500 MG DELAYED RELEASE (DEPAKOTE) TAB PO SCH (08:22)
[2017-02-25] MEDS: SENNA W/DOCUSATE (SENOKOT S) TABLET PO SCH (08:22)
[2017-02-25] MEDS: DIVALPROEX 250 MG DELAYED RELEASE (DEPAKOTE) TAB PO SCH (08:22)
[2017-02-25] MEDS: busPIRone 10 MG (BUSPAR) TAB PO SCH (08:22)
[2017-02-25] MEDS ORDERED: RIVASTIGMINE PATCH REMOVAL TP SCH (08:59)
[2017-02-25] MEDS ORDERED: FUROSEMIDE 40 MG (LASIX) TAB PO SCH (09:00)
[2017-02-25] MEDS ORDERED: ASPIRIN E.C. 81 MG (ECOTRIN) TAB PO SCH (09:00)
[2017-02-25] MEDS ORDERED: VENlafaxine XR 37.5 MG (EFFEXOR XR) CAP PO SCH (09:00)
[2017-02-25] MEDS ORDERED: VENlafaxine XR 75 MG (EFFEXOR XR) CAP PO SCH (09:00)
[2017-02-25] MEDS ORDERED: amLODIPine 5 MG (NORVASC) TAB PO SCH (09:00)
[2017-02-25] MEDS ORDERED: RIVASTIGMINE 4.6 MG PATCH (EXELON) TD SCH (09:00)
[2017-02-25] MEDS ORDERED: LORATADINE (CLARITIN) 10 MG TAB PO SCH (09:00)
--- NOTE | 2017-02-25 09:17 | Discharge Summary-Hospitalist ---
Diagnosis/Chief Complaint Date of Admission Feb 23, 2017 at 6:34 pm Date of Discharge Admission Diagnosis HCAP Discharge Diagnosis (1) HCAP (healthcare-associated pneumonia) Assessment & Plan: WBC resolved Lactic acid resolved Afebrile here If has sepsis, now resolved Continue on Levaquin Blood cultures pending Sputum culture pending Received Prevnar on September 17 per RN at [place] (2) Dementia Status: Chronic Assessment & Plan: Per records Baseline alert and oriented to person Currently at baseline On Aricept, Sinemet (3) COPD (chronic obstructive pulmonary disease) Assessment & Plan: MAT protocol Wears 2-3lpm at baseline Pulm consulted, appreciate recs Spiriva (4) CAD (coronary artery disease) Assessment & Plan: Continue ASA, Lipitor (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 Assessment & Plan: Has known lacrimal duct disease Continue artificial tears Some purulence noted Will cont abx gtt (6) Essential (primary) hypertension Assessment & Plan: BP well controlled currently Will resume amlodipine if needed (7) Generalized anxiety disorder Assessment & Plan: On multiple medications (Klonopin, Buspar, Effexor, and Depakote) Will resume home meds (8) Prophylactic measure Assessment & Plan: Lovenox NS at 75ml/hr Reg Diet Discharge Summary Consultations Pulm- Dr Roque Discharge Physical Examination Allergies: Coded Allergies: Penicillins (Verified Allergy, Unknown, 02/23/17) Vitals & I&Os Vital Signs Date Time Temp Pulse Resp B/P (MAP) Pulse Ox O2 Delivery O2 Flow Rate FiO2 02/25/17 13:11 88 20 139/75 93 Nasal Cannula 3.00 02/25/17 12:00 98.4 02/23/17 21:40 32 Hospital Course Pt was transferred to the ER from his [place] for weakness and fever and was found to have pneumonia on exam and lactic acidosis. He was not hypotensive despite this. He was started on HCAP coverage and improved rapidly. Pulmonology was consulted for assistance in management. Today he reported feeling great. His leukocytosis resolved along with his fever. Blood culture were obtained and were negative. He was transitioned to oral antibiotics to complete his course at his [place]. Case was discussed with Pulmonology and his daughter prior to discharge. Labs (last 24 hrs) Microbiology 02/23/17 Blood Culture - Preliminary, Resulted No growth 02/23/17 MRSA Screen - Final, Complete MRSA not isolated Pending Labs Discharge Home Medications: Active Scripts Active Levaquin (Levofloxacin) 750 Mg Tablet 750 Mg PO DAILY start tonight at 2000 Tobradex Eye Drops (Tobramycin/Dexamethasone) 5 Ml Drops.susp 2 Drops OU Q6HR 7 Days Reported Guaifenesin Dm Syrup (Guaifenesin/Dextromethorphan) 5 Ml Syrup 10 Ml PO Q4H PRN Melatonin 3 Mg Tablet 3 Mg PO HS PRN Fleet Enema (Na Phos,M-B/Na Phos,Di-Ba) 133 Ml Enema 133 Ml RC DAILY PRN Iprat-Albut 0.5-3(2.5) mg/3 ml (Ipratropium/Albuterol Sulfate) 3 Ml Ampul.neb 3 Ml NEB Q4H PRN Bisacodyl 10 Mg Supp.rect 10 Mg RC DAILY PRN Artificial Tears Drops (Polyvinyl Alcohol/Povidone) 15 Ml Drops 2 Drops OU PRN PRN Albuterol Sulfate 2.5 Mg/3 Ml Vial.neb 2.5 Mg NEB Q6H PRN Tylenol (Acetaminophen) 325 Mg Tablet 650 Mg PO Q4H PRN TAKES 2 (325MG) TABLETS Albuterol Sulfate 2.5 Mg/3 Ml Vial.neb 2.5 Mg NEB 0900,1400,2100 Rivastigmine 1 Each Patch.td24 4.6 Mg TD DAILY Clonazepam 0.25 Mg Tab.rapdis 0.25 Mg PO HS Carbidopa-Levodopa 25-100 Tab (Carbidopa/Levodopa) 1 Each Tablet 2 Tab PO TIDWM Buspirone HCl 10 Mg Tablet 10 Mg PO TID Senokot-S Tablet (Sennosides/Docusate Sodium) 1 Each Tablet 1 Tab PO BID Afrin (Oxymetazoline HCl) 30 Ml Brohman 1 Brohman NS BID Divalproex Sodium 500 Mg Tablet.dr 500 Mg PO BID TO BE GIVEN WTIH 250MG TO EQUAL 750MG Divalproex Sodium 250 Mg Tablet.dr 250 Mg PO BID TO BE GIVEN WITH 500MG TO EQUAL 750MG Tamsulosin HCl 0.4 Mg Cap.er.24h 0.4 Mg PO HS Spiriva (Tiotropium [place]) 1 Inh Aerp 1 Cap INH DAILY Ropinirole HCl 4 Mg Tablet 4 Mg PO HS Vitamin with Low Iron (Pnv with Ca,No.72/Iron/FA) 1 Each Tablet 1 Tab PO DAILY Naproxen 250 Mg Tablet 250 Mg PO HS Montelukast Sodium 10 Mg Tablet 10 Mg PO HS Loratadine 10 Mg Tablet 10 Mg PO DAILY Furosemide 40 Mg Tablet 40 Mg PO DAILY Venlafaxine HCl ER (Venlafaxine HCl) 75 Mg Cap.er.24h 75 Mg PO DAILY TO BE GIVEN WITH THE 37.5MG CAPSULE TO EQUAL 112.5MG Venlafaxine HCl ER (Venlafaxine HCl) 37.5 Mg Cap.er.24h 37.5 Mg PO DAILY TO BE GIVEN WITH THE 75MG CAPSULE TO EQUAL 112.5MG Atorvastatin Calcium 10 Mg Tablet 10 Mg PO HS Aspirin EC (Aspirin) 81 Mg Tablet.dr 81 Mg PO DAILY Donepezil HCl 10 Mg Tablet 10 Mg PO HS Amlodipine Besylate 5 Mg Tablet 5 Mg PO DAILY Instructions to patient/family Please see electronic discharge instructions given to patient. Clinical Quality Measures DVT/VTE Risk/Contraindication: Risk Factor Score Per Nursin RFS Level Per Nursing on Admit: 4+=Very High Problem Qualifiers (1) Dementia: Dementia type: Parkinson's disease (2) COPD (chronic obstructive pulmonary disease): COPD type: unspecified COPD Qualified Codes: J44.9 - Chronic obstructive pulmonary disease, unspecified (3) CAD (coronary artery disease): Coronary Disease-Associated Artery/Lesion type: [place] artery [place] vs. transplanted heart: inupiat heart Associated angina: without angina Qualified Codes: I25.10 - Atherosclerotic heart disease of inupiat coronary artery without angina pectoris (4) Dry eye syndrome of lacrimal gland: Laterality: right Qualified Codes: H04.121 - Dry eye syndrome of right lacrimal gland SARAH JUÁREZ MD Feb 25, 2017 09:17
[2017-02-25] MEDS ORDERED: LEVO750T9 PO (09:32)
[2017-02-25] MEDS ORDERED: TOBR5DRO2 OU (09:32)
[2017-02-25 12:00] VITALS: BP 139/75
[2017-02-25 13:11] VITALS: BP 139/75
== END 2017-02-25 12:55 | DRG 194 ==
LOC: EDUNIT# 16:37 → ER 16:38 → ICU 18:34 → 4TH 02-24 12:34
PROVIDERS: ADMIT Family Medicine; ATTEND Internal Medicine
DX: J18.9 Pneumonia, unspecified organism (principal); J44.0 Chronic obstructive pulmonary disease with (acute) lower respiratory infection; E87.2 Acidosis; J98.11 Atelectasis; I10 Essential (primary) hypertension; I25.10 Atherosclerotic heart disease of native coronary artery without angina pectoris; H04.121 Dry eye syndrome of right lacrimal gland; Z66 Do not resuscitate; G20 Parkinson's disease; F02.80 Dementia in other diseases classified elsewhere, unspecified severity, without behavioral disturbance, psychotic disturbance, mood disturbance, and anxiety; E78.00 Pure hypercholesterolemia, unspecified; K59.09 Other constipation; G47.9 Sleep disorder, unspecified; F41.9 Anxiety disorder, unspecified; F32.9 Major depressive disorder, single episode, unspecified; N42.9 Disorder of prostate, unspecified; Z87.891 Personal history of nicotine dependence; Z86.79 Personal history of other diseases of the circulatory system
CPT/HCPCS: 36415; 71010; 80048; 80053; 81000; 83605; 83735; 83880; 84100; 85025; 85610; 85730; 87040; 87081; 94640; 94664; 94760; 96361; 96374

== ENCOUNTER → 2017-03-30 | Outpatient (CLI) | payer MEDICARE ==
[~2017-03-30] MED LIST changes: +ACET325T38 PO; +ALBU2.5V4 NEB; +AMLO5TAB2 PO; +ASPI-983 PO; +ATOR10TA66 PO; +BISA10SU6 RC; +BUSP10TA95 PO; +CARB1TAB19 PO; -CATHETER FLUSH 10 ML SYR IV PRN; +CLON0.252 PO; +DIVA250T4 PO; +DIVA500T7 PO; +DONE10TA41 PO; +FURO40TA4 PO; +GUAI5SYR PO; -IOHEXOL 350 MG/ML 100 ML (OMNIPAQUE 350) VIAL IV ONE; +IPRA3AMP NEB; +LEVO750T9 PO; +LORA10TA7 PO; +MELA3TAB PO; +MONT10TA24 PO; +NA P133E22 RC; +NAPR250T6 PO; -NS 100 ML (IVPB) BAG IV ONE; +OXYM30SP NS; +PNV1TABL65 PO; +POLY15DR14 OU; +RIVA1PAT11 TD; +ROPI4TAB3 PO; +SENN-40 PO; +TAMS0.4C2 PO; +TIOT18CA2 INH; +TOBR5DRO2 OU; +VENL-48 PO; +VENL75CA93 PO
--- NOTE | 2017-03-30 15:15 | Diagnostic Imaging Report ---
INDICATION: Head injury and fall. EXAMINATION: Noncontrast brain CT was performed. COMPARISON: There is no prior study for comparison. FINDINGS: There are diffuse atrophic changes. There are extensive low-density changes throughout the deep white matter compatible with chronic ischemic change. There is no subdural or epidural collection. There is no acute intracranial hemorrhage. Ventricles are mildly prominent but compatible with the degree of atrophy seen. Calvarial windows show no calvarial fracture. IMPRESSION: Atrophic changes and extensive chronic ischemic changes in the deep white matter. No acute intracranial hemorrhage or calvarial fracture. Dictated by: Dictated on workstation # [id number]
== END ==
LOC: RAD 14:04
PROVIDERS: ATTEND Physician Assistant
DX: S09.90XA Unspecified injury of head, initial encounter (principal); R90.82 White matter disease, unspecified; W19.XXXA Unspecified fall, initial encounter
CPT/HCPCS: 70450

== ENCOUNTER 2017-04-03 08:37 | Emergency (ER) | payer MEDICARE ==
[~2017-04-03] VITALS: Ht 177.8 cm; Wt 90.7 kg
[2017-04-03] MEDS ORDERED: RT-ALBUTEROL/IPRATROPIUM 3 ML (DUONEB) VIAL INH ONE (09:00)
[2017-04-03 09:07] LABS: BASOPHILS # (AUTO) 0.1 10^3/uL (0.0-0.1); BASOPHILS % (AUTO) 0 % (0-10); EOSINOPHILS % (AUTO) 0 % (0-10); HEMATOCRIT 54 % (40-54); HEMOGLOBIN 17.9 G/DL (13.3-17.7); LYMPHOCYTES # (AUTO) 3.1 X 10^3 (1.0-4.0); LYMPHOCYTES % (AUTO) 19 % (12-44); MEAN CORPUSCULAR HEMOGLOBIN 34 PG (25-34); MEAN CORPUSCULAR HGB CONC 33 G/DL (32-36); MEAN CORPUSCULAR VOLUME 102 FL (80-99); MEAN PLATELET VOLUME 10.3 FL (7.4-10.4); MONOCYTES % (AUTO) 12 % (0-12); NEUTROPHILS # (AUTO) 11.4 X 10^3 (1.8-7.8); NEUTROPHILS % (AUTO) 69 % (42-75); PLATELET COUNT 212 10^3/uL (130-400); RED BLOOD COUNT 5.33 10^6/uL (4.35-5.85); RED CELL DISTRIBUTION WIDTH 14.1 % (10.0-14.5); WHITE BLOOD COUNT 16.6 10^3/uL (4.3-11.0)
[2017-04-03 09:19] LABS: ALBUMIN 3.8 GM/DL (3.2-4.5); BAND NEUTROPHILS 1 %; BILIRUBIN,TOTAL 0.6 MG/DL (0.1-1.0); CALCIUM 9.1 MG/DL (8.5-10.1); CREATININE SERUM 1.68 MG/DL (0.60-1.30); LYMPHOCYTES % (MANUAL) 8 %; NEUTROPHILS % (MANUAL) 74 %; POTASSIUM 4.1 MMOL/L (3.6-5.0); TOTAL PROTEIN 7.1 GM/DL (6.4-8.2)
[2017-04-03 09:22] LABS: MONOCYTES % (MANUAL) 17 %; RBC MORPH NORMAL; TOXIC GRANULATION/VACUOLAZATIO 1+
--- NOTE | 2017-04-03 09:28 | Diagnostic Imaging Report ---
EXAM: CHEST 1 VIEW, AP/PA ONLY INDICATION: Dyspnea. Fever. COMPARISON: Chest radiograph 02/24/2017. FINDINGS: Cardiomegaly with normal central pulmonary vascularity. Since the prior exam, there has been improvement of the prominent interstitium. There remains mild atelectasis or infiltrate in the lung bases. No pleural effusion or pneumothorax. Calcified aorta. No acute osseous findings. IMPRESSION: Cardiomegaly. Interval improvement of the interstitial prominence in both lungs. Mild persistent atelectasis or infiltrate in the lung bases. Dictated by: Dictated on workstation # [id number]
[2017-04-03] MEDS ORDERED: ACETAMINOPHEN 650 MG SUPP (TYLENOL) PR ONE ×2 (09:30)
[2017-04-03 09:55] LABS: INR 1.2 (0.8-1.4); PROTHROMBIN TIME PATIENT 14.9 SEC (12.2-14.7)
[2017-04-03] MEDS ORDERED: LEVOFLOXACIN 750 MG/150 ML IV 150 ML IV ONE (10:15)
[2017-04-03] MEDS ORDERED: DILTIAZEM 25 MG/5 ML INJ (CARDIZEM) VIAL IVP ONE (10:15)
[2017-04-03] MEDS ORDERED: DILTIAZEM IV FOR DRIP 125 MG in NS (IVPB) 100 ML IV SCH (10:15)
--- NOTE | 2017-04-03 10:32 | ED General ---
General Chief Complaint: Respiratory Problems Stated Complaint: SOA Nursing Triage Note: ARRIVED VIA EMS FROM [facility]. ACCORDING TO STAFF AT [facility]IREMENT HE STARTED RUNNING A FEVER YESTERDAY AND APPEARED SOA THIS AM WITH THE PULSE OX IN THE 80'S. LAST DOSE OF TYLENOL WAS AT 0345 TODAY. PT AWAKE BUT DOES NOT TALK TO US. Nursing Sepsis Screen: Possible Sepsis Risk Source of Information: EMS, Family, Snf Records, Old Records Exam Limitations: Physical Impairments History of Present Illness Time Seen by Provider: 08:38 Initial Comments This 82-year-old gentleman presents to the emergency room via EMS from the [facility] with shortness of breath, hypoxia, and possible fever. He is a resident of the [facility] in [place]. He is chronically debilitated, nonambulatory, and has a DO NOT RESUSCITATE status. His of 60 years recently . Symptoms were first noted this a.m. Patient is noted to have a bruise on his forehead from a fall several days ago for which he was evaluated. Family reports he has increased tremors. He also is not talking which is unusual for him. He is noted to have atrial fibrillation with RVR on the monitor. Family reports this sometimes happens when he is ill. They report he has had problems with pneumonia in the past and they have concerns that he is frequently aspirating. She has advanced dementia and Parkinson's disease. Patient received a nebulizer treatment at the [facility] prior to departure. Allergies and Home Medications Allergies Coded Allergies: Penicillins (Verified Allergy, Unknown, 02/23/17) Home Medications Acetaminophen 325 Mg Tablet, 650 MG PO Q4H PRN for PAIN-MILD, (Reported) TAKES 2 (325MG) TABLETS Albuterol Sulfate 2.5 Mg/3 Ml Vial.neb, 2.5 MG NEB 0900,1400,2100, (Reported) Albuterol Sulfate 2.5 Mg/3 Ml Vial.neb, 2.5 MG NEB Q6H PRN for SHORTNESS OF BREATH, (Reported) Amlodipine Besylate 5 Mg Tablet, 5 MG PO DAILY, (Reported) Aspirin 81 Mg Tablet.dr, 81 MG PO DAILY, (Reported) Atorvastatin Calcium 10 Mg Tablet, 10 MG PO HS, (Reported) Bisacodyl 10 Mg Supp.rect, 10 MG RC DAILY PRN for CONSTIPATION-4TH LINE, ( Reported) Buspirone HCl 10 Mg Tablet, 10 MG PO TID, (Reported) Carbidopa/Levodopa 1 Each Tablet, 2 TAB PO TIDWM, (Reported) Clonazepam 0.25 Mg Tab.rapdis, 0.25 MG PO HS, (Reported) Divalproex Sodium 250 Mg Tablet.dr, 250 MG PO BID, (Reported) TO BE GIVEN WITH 500MG TO EQUAL 750MG Divalproex Sodium 500 Mg Tablet.dr, 500 MG PO BID, (Reported) TO BE GIVEN WTIH 250MG TO EQUAL 750MG Donepezil HCl 10 Mg Tablet, 10 MG PO HS, (Reported) Furosemide 40 Mg Tablet, 40 MG PO DAILY, (Reported) Guaifenesin/Dextromethorphan 5 Ml Syrup, 10 ML PO Q4H PRN for COUGH, (Reported) Ipratropium/Albuterol Sulfate 3 Ml Ampul.neb, 3 ML NEB Q4H PRN for SHORTNESS OF BREATH, (Reported) Levofloxacin 750 Mg Tablet, 750 MG PO DAILY, #5 start tonight at 2000 Prescribed by: SARAH JUÁREZ on 02/25/17 0932 Loratadine 10 Mg Tablet, 10 MG PO DAILY, (Reported) Melatonin 3 Mg Tablet, 3 MG PO HS PRN for SLEEP, (Reported) Montelukast Sodium 10 Mg Tablet, 10 MG PO HS, (Reported) Na Phos,M-B/Na Phos,Di-Ba 133 Ml Enema, 133 ML RC DAILY PRN for CONSTIPATION- 8TH LINE, (Reported) Naproxen 250 Mg Tablet, 250 MG PO HS, (Reported) Oxymetazoline HCl 30 Ml [place], 1 SPRAY NS BID, (Reported) Pnv with Ca,No.72/Iron/FA 1 Each Tablet, 1 TAB PO DAILY, (Reported) Polyvinyl Alcohol/Povidone 15 Ml Drops, 2 DROPS OU PRN PRN for DRY EYES, ( Reported) Rivastigmine 1 Each Patch.td24, 4.6 MG TD DAILY, (Reported) Ropinirole HCl 4 Mg Tablet, 4 MG PO HS, (Reported) Sennosides/Docusate Sodium 1 Each Tablet, 1 TAB PO BID, (Reported) Tamsulosin HCl 0.4 Mg Cap.er.24h, 0.4 MG PO HS, (Reported) Tiotropium [place] 1 Inh Aerp, 1 CAP INH DAILY, (Reported) Tobramycin/Dexamethasone 5 Ml Drops.susp, 2 DROPS OU Q6HR for 7 Days, #1 Prescribed by: SARAH JUÁREZ on 02/25/17 0932 Venlafaxine HCl 37.5 Mg Cap.er.24h, 37.5 MG PO DAILY, (Reported) TO BE GIVEN WITH THE 75MG CAPSULE TO EQUAL 112.5MG Venlafaxine HCl 75 Mg Cap.er.24h, 75 MG PO DAILY, (Reported) TO BE GIVEN WITH THE 37.5MG CAPSULE TO EQUAL 112.5MG Constitutional: see HPI EENTM: see HPI Respiratory: see HPI Cardiovascular: no symptoms reported Gastrointestinal: no symptoms reported Genitourinary: no symptoms reported Musculoskeletal: no symptoms reported Skin: no symptoms reported Psychiatric/Neurological: See HPI Hematologic/Lymphatic: No Symptoms Reported Immunological/Allergic: no symptoms reported Past Wicahfh-Nfzpyz-Yjshrg Hx Patient Social History Alcohol Use: Denies Use Recreational Drug Use: No Type Used: Cigarettes Former Smoker, Quit: Feb 28, 2014 Recent Foreign Travel: No Contact w/Someone Who Travel: No Recent Infectious Disease Expo: No Recent Hopitalizations: No Immunizations Up To Date Date of Pneumonia Vaccine: Aug 25, 2016 Date of Influenza Vaccine: Dec 25, 2016 Seasonal Allergies Seasonal Allergies: No Surgeries History of Surgeries: Yes (CAROTID) Respiratory History of Respiratory Disorde: Yes (Possible aspiration) Respiratory Disorders: Pneumonia, Chronic Bronchitis, COPD Cardiovascular History of Cardiac Disorders: Yes Cardiac Disorders: High Cholesterol, Hypertension Neurological History of Neurological Disord: Yes Neurological Disorders: Dementia, Parkinson's Disease Genitourinary Genitourinary Disorders: Prostate Problems Gastrointestinal History of Gastrointestinal Di: Yes Gastrointestinal Disorders: Chronic Constipation Musculoskeletal History of Musculoskeletal Dis: No HEENT History of HEENT Disorders: No Cancer History of Cancer: No Psychosocial History of Psychiatric Problem: Yes Behavioral Health Disorders: Sleep Difficulties, Anxiety, Depression Family Medical History Significant Family History: No Pertinent Family Hx Physical Exam-Suspected Sepsis Physical Exam Vital Signs Vital Sign - Last 12Hours 04/03/17 04/03/17 08:37 09:06 Temp 101.7 Pulse 128 Resp 24 Pulse Ox 96 O2 Delivery Non Rebreather O2 Flow Rate 6.00 Capillary Refill : Less Than 3 Seconds General Appearance: WD/WN, Mild Distress Eyes: Bilateral Eye PERRL, Bilateral Eye Other (Eyes have crusting and matting drainage bilaterally) HEENT: PERRL/EOMI, Normal ENT Inspection, Pharynx Normal Neck: Normal Inspection Respiratory: No Accessory Muscle Use, No Respiratory Distress, Crackles, Wheezing Cardiovascular: Irregularly Irregular, Tachycardia Gastrointestinal: Normal Bowel Sounds, Non Tender, Soft Extremity: Normal Inspection Neurologic/Psychiatric: Alert, No Motor/Sensory Deficits, Other (Confused, nonverbal) Skin: normal color, warm/dry Focused Exam Evaluation Lactate Level Laboratory Tests 04/03/17 08:50: Lactic Acid Level 1.98 Lactic Acid Level Progress/Results/Core Measures Suspected Sepsis Recent Fever Within 48 Hours: Yes Infection Criteria Present: Suspected New Infection New/Unexplained Altered Menta: No Sepsis Screen: Possible Sepsis Risk Sepsis Diagnosis: SIRS Temperature:101.7 Pulse: 128 Respiratory Rate: 24 Laboratory Tests 04/03/17 08:50: White Blood Count 16.6H Blood Pressure / Mean: Laboratory Tests 04/03/17 08:50: Lactic Acid Level 1.98 Laboratory Tests 04/03/17 08:50: Creatinine 1.68H, Platelet Count 212, Total Bilirubin 0.6 04/03/17 09:27: INR Comment 1.2 Results/Orders Lab Results Laboratory Tests Test 04/03/17 08:50 04/03/17 09:27 Range/Units White Blood Count 16.6 H 4.3-11.0 10^3/uL Red Blood Count 5.33 4.35-5.85 10^6/uL Hemoglobin 17.9 H 13.3-17.7 G/DL Hematocrit 54 40-54 % Mean Corpuscular Volume 102 H 80-99 FL Mean Corpuscular Hemoglobin 34 25-34 PG Mean Corpuscular Hemoglobin Concent 33 32-36 G/DL Red Cell Distribution Width 14.1 10.0-14.5 % Platelet Count 212 130-400 10^3/uL Mean Platelet Volume 10.3 7.4-10.4 FL Neutrophils (%) (Auto) 69 42-75 % Lymphocytes (%) (Auto) 19 12-44 % Monocytes (%) (Auto) 12 0-12 % Eosinophils (%) (Auto) 0 0-10 % Basophils (%) (Auto) 0 0-10 % Neutrophils # (Auto) 11.4 H 1.8-7.8 X 10^3 Lymphocytes # (Auto) 3.1 1.0-4.0 X 10^3 Monocytes # (Auto) 2.0 H 0.0-1.0 X 10^3 Eosinophils # (Auto) 0.0 0.0-0.3 10^3/uL Basophils # (Auto) 0.1 0.0-0.1 10^3/uL Neutrophils % (Manual) 74 % Lymphocytes % (Manual) 8 % Monocytes % (Manual) 17 % Band Neutrophils 1 % Toxic Granulation 1+ Blood Morphology Comment NORMAL Sodium Level 150 H 135-145 MMOL/L Potassium Level 4.1 3.6-5.0 MMOL/L Chloride Level 106 98-107 MMOL/L Carbon Dioxide Level 27 21-32 MMOL/L Anion Gap 17 H 5-14 MMOL/L Blood Urea Nitrogen 42 H 7-18 MG/DL Creatinine 1.68 H 0.60-1.30 MG/DL Estimat Glomerular Filtration Rate 39 BUN/Creatinine Ratio 25 Glucose Level 123 H 70-105 MG/DL Lactic Acid Level 1.98 0.50-2.00 MMOL/L Calcium Level 9.1 8.5-10.1 MG/DL Total Bilirubin 0.6 0.1-1.0 MG/DL Aspartate Amino Transf (AST/SGOT) 45 H 5-34 U/L Alanine Aminotransferase (ALT/SGPT) 8 0-55 U/L Alkaline Phosphatase 52 40-136 U/L C-Reactive Protein High Sensitivity 1.82 H 0.00-0.50 MG/DL B-Type Natriuretic Peptide 68.9 <100.0 PG/ML Total Protein 7.1 6.4-8.2 GM/DL Albumin 3.8 3.2-4.5 GM/DL Prothrombin Time 14.9 H 12.2-14.7 SEC INR Comment 1.2 0.8-1.4 Activated Partial Thromboplast Time 29 24-35 SEC Micro Results Microbiology 04/03/17 Influenza Types A,B Antigen ([place]) - Final, Complete My Orders Orders - DWAYNE CLARK MD Cbc With Automated Diff (04/03/17 08:55) Comprehensive Metabolic Panel (04/03/17 08:55) Lactic Acid Analyzer (04/03/17 08:55) Blood Culture (04/03/17 08:55) Protime With Inr (04/03/17 08:55) Partial Thromboplastin Time (04/03/17 08:55) Chest 1 View, Ap/Pa Only (04/03/17 08:55) O2 (04/03/17 08:55) Saline Lock/Iv-Start (04/03/17 08:55) Saline Lock/Iv-Start (04/03/17 08:55) Vital Signs Adult Sepsis Patie Q1H (04/03/17 08:55) Remove Rings In Anticipation O (04/03/17 08:55) Influenza A And B Antigens (04/03/17 08:55) BNP (04/03/17 08:55) Hs C Reactive Protein (04/03/17 08:55) Albuterol/Ipra Inhalation Soln (Duoneb I (04/03/17 09:00) Svn Sm Volume Nebulizer Rt-Rfs (04/03/17 08:55) Manual Differential (04/03/17 08:50) Acetaminophen Suppository (Tylenol Suppo (04/03/17 09:30) Acetaminophen Suppository (Tylenol Suppo (04/03/17 09:30) Ekg Tracing (04/03/17 09:45) Monitor-Rhythm Ecg Trace Only (04/03/17 09:45) Diltiazem Injection (Cardizem Injection) (04/03/17 10:15) Ns (Ivpb) (Sodium C... W/Diltiazem Iv Fo (04/03/17 10:15) Levofloxacin 750 Mg/150 Ml Iv (Levaquin (04/03/17 10:15) Fentanyl Injection (Sublimaze Injection (04/03/17 10:45) Medications Given in ED Vital Signs/I&O Capillary Refill : Less Than 3 Seconds Progress Note : Time: 10:30 Progress Note Patient underwent septic workup after arrival. He was found to be in atrial fibrillation with RVR. His daughter states that this is not a new condition and he has had episodes of A. fib when ill with infectious problems. He has had recurrent problems with pneumonia and they believe he aspirates when he eats. Patient has had multiple serious health problems in the context of debilitating dementia and Parkinson's disease. Patient's daughter states she and her brother who are co-power of sports attorney both agree that it is time to pursue comfort care and hospice. Admission with aggressive treatment with antibiotics, hydration, etc. was offered but they prefer to make him comfort care given his overall quality of life. My professional judgment is that this is a reasonable decision and will be accommodated. EMS is being contacted to help arrange transfer back to the [facility]. Daughter has requested pain management medication as patient appears agitated and uncomfortable. Antibiotics and Cardizem previously ordered were discontinued. Fentanyl was ordered. KENN Clinton will help arrange hospice and comfort care orders as she has cared for this patient in the [facility]. ECG Initial ECG Impression Date: Apr 03, 2017 Initial ECG Impression Time: 09:57 Initial ECG Rate: 150 Initial ECG Rhythm: A Fib/Flutter Initial ECG Impression: Atrial Fibrillation w/RVR Comment Atrial fibrillation with RVR. Diagnostic Imaging Diagonstic Imaging: Xray Plain Films/CT/US/NM/MRI: chest Comments Chest x-ray viewed by me and report reviewed. See report below: NAME: LUISITO SERNA MED REC#: [id number] PT STATUS: REG ER : 1935 PHYSICIAN: DWAYNE CLARK MD ADMIT DATE: 04/03/17/ER Signed Date of Exam: 04/03/17 CHEST 1 VIEW, AP/PA ONLY EXAM: CHEST 1 VIEW, AP/PA ONLY INDICATION: Dyspnea. Fever. COMPARISON: Chest radiograph 02/24/2017. FINDINGS: Cardiomegaly with normal central pulmonary vascularity. Since the prior exam, there has been improvement of the prominent interstitium. There remains mild atelectasis or infiltrate in the lung bases. No pleural effusion or pneumothorax. Calcified aorta. No acute osseous findings. IMPRESSION: Cardiomegaly. Interval improvement of the interstitial prominence in both lungs. Mild persistent atelectasis or infiltrate in the lung bases. Dictated by: Dictated on workstation # [id number] Dict: 04/03/17918 Trans: 04/03/17 113 Interpreted by: MATILDA DOWD MD Electronically signed by: MATILDA DOWD MD 04/03/17 1130 Departure Impression Impression: Primary Impression: Sepsis Qualified Codes: A41.9 - Sepsis, unspecified organism Additional Impressions: Altered mental status Qualified Codes: R41.82 - Altered mental status, unspecified Atrial fibrillation with RVR Disposition: HOME, SELF-CARE Condition: Unchanged Departure-Patient Inst. Decision time for Depature: 10:30 Referrals: SARAH PAEZ MD (PCP/Family) Primary Care Physician Patient Instructions: NO INSTRUCTIONS GIVEN Add. Discharge Instructions: Return home for comfort care on hospice. Refer to Meenakshi Chappell and hospice for further orders. All discharge instructions reviewed with patient and/or family. Voiced understanding. Copy Copies To 1: SARAH PAEZ MD, JOSHUA T MD Apr 03, 2017 10:32
[2017-04-03] MEDS ORDERED: fentaNYL INJECTION 100 MCG/2 ML AMP IVP ONE (10:45)
[2017-04-03 11:43] VITALS: BP 131/99
== END 2017-04-03 11:43 | disposition home or self-care (01) ==
LOC: EDUNIT# 08:37 → ER 08:37
DX: A41.9 Sepsis, unspecified organism (principal); R41.82 Altered mental status, unspecified; I48.91 Unspecified atrial fibrillation; F41.9 Anxiety disorder, unspecified; F32.9 Major depressive disorder, single episode, unspecified; K59.09 Other constipation; E78.00 Pure hypercholesterolemia, unspecified; F03.90 Unspecified dementia, unspecified severity, without behavioral disturbance, psychotic disturbance, mood disturbance, and anxiety; I10 Essential (primary) hypertension; G20 Parkinson's disease; J44.9 Chronic obstructive pulmonary disease, unspecified; Z66 Do not resuscitate; Z79.82 Long term (current) use of aspirin; Z87.891 Personal history of nicotine dependence; Z98.890 Other specified postprocedural states; Z87.01 Personal history of pneumonia (recurrent)
CPT/HCPCS: 36415; 71045; 80053; 83605; 83880; 85007; 85027; 85610; 85730; 86141; 87040; 87077; 87804; 93005; 93041; 94640